=== PATIENT | female | born 1965 | race Hispanic/Latino ===

== ENCOUNTER 2020-07-01 20:44 | Inpatient (IN) | payer OTHER ==
[2020-07-01 21:51] LABS: #Lymphocytes 1.4 thou/uL (1.20-3.40); #Monocytes 0.4 thou/uL (0.11-0.59); #Neutrophils 5.5 thou/uL (1.40-6.50); %Basophils 0.3 % (0.0-1.0); %Eosinophils 0.3 % (0.0-10.0); %Lymphocytes 19.3 % (21.0-51.0); %Monocytes 5.9 % (0.0-10.0); %Neutrophils 74.3 % (42.0-75.0); Hemoglobin 15.5 g/dL (12.0-16.0); Mean Corpuscular HGB CONC 35.5 g/dL (32.0-36.0); Mean Corpuscular Hemoglobin 35.3 pg (27.0-31.0); Mean Corpuscular Volume 99.4 fL (78.0-98.0); Mean Platelet Volume 8.8 fL (7.4-10.4); Platelet Count 271 thou/uL (130-400); RBC Distribution Width 11.3 % (11.5-14.5); Red Blood Cell (RBC) Count 4.41 mill/uL (4.20-5.40); White Blood Cell (WBC) Count 7.4 thou/uL (4.8-10.8)
[2020-07-01 22:10] LABS: ALT (SGPT) 28 U/L (8-55); AST (SGOT) 16 U/L (5-34); Albumin 4.4 g/dL (3.5-5.0); Alkaline Phosphatase 145 U/L (40-110); Anion Gap 23 mmol/L (10-20); BUN (Urea Nitrogen) 14 mg/dL (9.8-20.1); Bilirubin, Total 0.5 mg/dL (0.2-1.2); Calc. Creatinine Clearance 0 mL/min (70-130); Calcium 9.5 mg/dL (7.8-10.44); Carbon Dioxide 18 mmol/L (22-29); Chloride 93 mmol/L (98-107); Globulin 3.1 g/dL (2.4-3.5); Potassium 4.2 mmol/L (3.5-5.1); Protein, Total 7.5 g/dL (6.0-8.3); Sodium 130 mmol/L (136-145)
[2020-07-01 22:17] LABS: Glucose 648 mg/dL (70-105)
[2020-07-01 22:20] LABS: Pregnancy Test - Urine (BHCG) Negative (Negative); Pregu Control Background? CLEAR/WHITE (CLR/WHITE); Pregu Control Bar Appear? YES (CONTROL BAR); Specific Gravity 1.033 (1.002-1.036)
[2020-07-01 22:22] LABS: Bilirubin Negative (Negative); Blood, Urine Negative (Negative); Clarity Clear (Clear); Glucose, Urine (Dipstick) Greater than 1000 mg/dL (Negative); Ketone, Urine 150 mg/dL (Negative); Leukocyte Negative Leu/uL (Negative); Nitrite Negative (Negative); Protein, Urine (Dipstick) Negative (Neg-Trace); Specific Gravity, Urine 1.032 (1.002-1.036); Urobilinogen Normal mg/dL (Less than 2)
[2020-07-01] MEDS ORDERED: Ondansetron PF 4 MG/2 ML Vial ONE (23:42)
[2020-07-01] MEDS ORDERED: Morphine 4 MG/ML VIAL ONE (23:42)
[2020-07-01 23:49] LABS: Analyzer IN Cardio ER; pH (venous) 7.29 (7.32-7.43)
[2020-07-01 23:50] LABS: Actual Bicarbonate (HCO3v) 15 mEq/L (22-28); Hemoglobin (Hb) 0.6 g/dL (11.7-16.0)
[2020-07-01 23:51] LABS: Calcium, Ionized (venous) 1.15 mmol/L (1.16-1.32); Chloride (VBG) 101 mmol/L (98-106)
[2020-07-02] MEDS ORDERED: INSULIN REGULAR IN 0.9 % NACL 100 UNIT/100 ML BAG ONE (00:15)
[2020-07-02] MEDS ORDERED: NS 0.9% w/ 20 MEQ KCL 1,000 ML/1,000 ML BAG IV SCH (01:00)
[2020-07-02 01:57] LABS: Phosphorus 1.7 mg/dL (2.3-4.7)
[2020-07-02 03:06] LABS: SARS-CoV-2 NAA Rapid Test Not Detected (NotDetected)
[2020-07-02] MEDS ORDERED: Electrolyte Replacement Protocol FS PRN (03:15)
[2020-07-02] MEDS ORDERED: D5 1/2 NS w/20 mEq KCL 1,000 ML IV PRN (03:38)
[2020-07-02] MEDS ORDERED: Electrolyte Replacement Protocol 1 EACH IVPB ONE (03:38)
[2020-07-02] MEDS ORDERED: Dextrose 5 %-0.45 % NaCl 1,000 ML IV PRN (03:38)
[2020-07-02] MEDS ORDERED: Sodium Chloride 0.9% 1,000 ML IV PRN ×4 (03:38)
[2020-07-02] MEDS ORDERED: NS 0.9% w/ 20 MEQ KCL 1,000 ML IV PRN ×2 (03:38)
[2020-07-02] MEDS ORDERED: Acetaminophen 325 MG TAB PO PRN (03:40)
[2020-07-02] MEDS ORDERED: Ondansetron PF 4 MG/2 ML Vial IVP PRN (03:40)
[2020-07-02] MEDS: PHOS-NAK 1 PKT PACK PO SCH ×2 (03:40→07:09)
[2020-07-02] MEDS ORDERED: Guaifenesin DM 100-10/5 ML UDCUP PO PRN (03:40)
[2020-07-02] MEDS ORDERED: cloNIDine 0.1 MG TAB PO PRN (03:40)
[2020-07-02] MEDS ORDERED: Morphine 2 MG/ML VIAL SLOW IVP PRN (03:40)
[2020-07-02] MEDS ORDERED: Labetalol HCl 100 MG/20 ML VIAL SLOW IVP PRN (03:40)
[2020-07-02] MEDS ORDERED: hydrALAZINE 20 MG/ML VIAL SLOW IVP PRN (03:40)
[2020-07-02] MEDS ORDERED: Promethazine HCl 12.5 MG in Sodium Chloride 0.9% 50 ML IVPB PRN (03:40)
[2020-07-02] MEDS ORDERED: HUMULIN R 100 UNITS in Sodium Chloride 0.9% 100 ML IVPB SCH (03:45)
[2020-07-02] MEDS ORDERED: Magnesium 2 GM/50 ML 2 GM in Premix Bag 1 BAG IVPB SCH (04:45)
[2020-07-02] MEDS ORDERED: Magnesium 2 GM/50 ML BAG (IN WATER) ONE (04:48)
[2020-07-02 06:10] LABS: Anion Gap 12 mmol/L (10-20); BUN (Urea Nitrogen) 7 mg/dL (9.8-20.1); Calc. Creatinine Clearance 0 mL/min (70-130); Calcium 7.4 mg/dL (7.8-10.44); Carbon Dioxide 23 mmol/L (22-29); Chloride 110 mmol/L (98-107); Glucose 189 mg/dL (70-105); Potassium 3.7 mmol/L (3.5-5.1); Sodium 141 mmol/L (136-145)
[2020-07-02] MEDS ORDERED: Acetaminophen 325 MG TAB ONE (06:12)
[2020-07-02 08:14] LABS: Phosphorus 1.9 mg/dL (2.3-4.7)
[2020-07-02 08:32] LABS: Anion Gap 12 mmol/L (10-20); BUN (Urea Nitrogen) 6 mg/dL (9.8-20.1); Calc. Creatinine Clearance 0 mL/min (70-130); Calcium 7.1 mg/dL (7.8-10.44); Carbon Dioxide 20 mmol/L (22-29); Chloride 110 mmol/L (98-107); Glucose 195 mg/dL (70-105); Potassium 3.8 mmol/L (3.5-5.1); Sodium 138 mmol/L (136-145)
[2020-07-02] MEDS ORDERED: Famotidine 20 MG TAB ONE (11:58)
[2020-07-02 12:06] LABS: Anion Gap 9 mmol/L (10-20); BUN (Urea Nitrogen) 5 mg/dL (9.8-20.1); Calc. Creatinine Clearance 0 mL/min (70-130); Calcium 7.2 mg/dL (7.8-10.44); Carbon Dioxide 23 mmol/L (22-29); Chloride 106 mmol/L (98-107); Glucose 347 mg/dL (70-105); Potassium 3.8 mmol/L (3.5-5.1); Sodium 134 mmol/L (136-145)
[2020-07-02] MEDS: Famotidine 20 MG TAB PO SCH ×2 (12:09→22:12)
[2020-07-02] MEDS: Heparin 5,000 UNITS/ML VIAL SC SCH ×2 (12:09→22:12)
[2020-07-02] MEDS: Polyethylene Glycol 3350 17 GM Packet PO SCH (12:11)
[2020-07-02] MEDS ORDERED: Dextrose 5% in Water 1,000 ML IV PRN (13:01)
[2020-07-02] MEDS ORDERED: Dextrose 50% Abboject 50 ML SYRINGE SLOW IVP PRN (13:01)
[2020-07-02] MEDS ORDERED: HumaLOG 300 UNITS/3 ML VIAL ONE (13:49)
[2020-07-02 13:50] LABS: Hemoglobin A1c Greater than 14.0 % (4.0-6.0)
[2020-07-02 18:20] VITALS: BMI 19.7
[2020-07-02] MEDS ORDERED: Insulin Glargine 15 UNITS in Pre-Filled Syringe 1 EACH SC SCH (21:00)
[2020-07-02] MEDS: HumaLOG 300 UNITS/3 ML VIAL SC PRN (22:11)
[2020-07-03] MEDS: HYDROcodone/Acetaminophen 5/325 mg Tablet PO PRN ×3 (00:40→20:56)
[2020-07-03] MEDS: HumaLOG 300 UNITS/3 ML VIAL SC PRN ×3 (05:31→18:34)
[2020-07-03 05:41] LABS: #Basophils 0.1 thou/uL (0.0-0.2); #Eosinphils 0.1 thou/uL (0.0-0.7); #Lymphocytes 2.3 thou/uL (1.20-3.40); #Monocytes 0.3 thou/uL (0.11-0.59); #Neutrophils 2.1 thou/uL (1.40-6.50); %Basophils 1.1 % (0.0-1.0); %Eosinophils 2.6 % (0.0-10.0); %Lymphocytes 46.4 % (21.0-51.0); %Monocytes 6.9 % (0.0-10.0); %Neutrophils 43.1 % (42.0-75.0); Hemoglobin 13.1 g/dL (12.0-16.0); Mean Corpuscular HGB CONC 34.4 g/dL (32.0-36.0); Mean Corpuscular Hemoglobin 33.9 pg (27.0-31.0); Mean Corpuscular Volume 98.6 fL (78.0-98.0); Mean Platelet Volume 8.5 fL (7.4-10.4); Platelet Count 184 thou/uL (130-400); RBC Distribution Width 11.6 % (11.5-14.5); Red Blood Cell (RBC) Count 3.88 mill/uL (4.20-5.40)
[2020-07-03 06:02] LABS: Anion Gap 10 mmol/L (10-20); BUN (Urea Nitrogen) 4 mg/dL (9.8-20.1); Calc. Creatinine Clearance 101 mL/min (70-130); Calcium 7.7 mg/dL (7.8-10.44); Carbon Dioxide 25 mmol/L (22-29); Chloride 103 mmol/L (98-107); Glucose 241 mg/dL (70-105); Magnesium 1.7 mg/dL (1.6-2.6); Sodium 135 mmol/L (136-145)
[2020-07-03] MEDS ORDERED: Loperamide HCl 2 MG CAP PO PRN (07:20)
[2020-07-03] MEDS ORDERED: Sodium Chloride 0.65% Nasal 44 ML BOT EA NARE PRN (07:20)
[2020-07-03] MEDS ORDERED: GUAIFENESIN SF SOLN 200 MG/10 ML UDCUP PO PRN (07:20)
[2020-07-03] MEDS ORDERED: Ondansetron ODT 4 MG TAB PO PRN (07:20)
[2020-07-03] MEDS ORDERED: HumaLOG 300 UNITS/3 ML VIAL SC PRN (07:20)
[2020-07-03] MEDS ORDERED: Benzonatate 100 MG CAP PO PRN (07:20)
[2020-07-03] MEDS ORDERED: Senokot S 8.6-50 MG TAB PO PRN (07:20)
[2020-07-03] MEDS ORDERED: Calcium Carbonate 500 MG ChewTAB PO PRN (07:20)
[2020-07-03] MEDS ORDERED: Cepastat Lozenges 1 LOZ PO PRN (07:20)
[2020-07-03] MEDS ORDERED: Potassium Chloride 20 MEQ TAB PO SCH (07:30)
[2020-07-03 07:49] LABS: Phosphorus 2.3 mg/dL (2.3-4.7)
[2020-07-03] MEDS: Heparin 5,000 UNITS/ML VIAL SC SCH ×2 (08:21→20:54)
[2020-07-03] MEDS: Famotidine 20 MG TAB PO SCH ×2 (08:21→20:54)
[2020-07-03] MEDS: Polyethylene Glycol 3350 17 GM Packet PO SCH (08:22)
[2020-07-03] MEDS ORDERED: Loratadine 10 MG TAB PO PRN (09:00)
[2020-07-03] MEDS ORDERED: Bisacodyl 10 MG SUPP PR PRN (09:00)
[2020-07-03] MEDS ORDERED: Insulin Glargine 15 UNITS in Pre-Filled Syringe 1 EACH SC SCH ×2 (09:00→21:00)
[2020-07-03] MEDS: Cyclobenzaprine 10 MG TAB PO PRN (11:18)
[2020-07-03] MEDS ORDERED: Zolpidem Tartrate 5 MG TAB PO PRN (21:00)
[2020-07-04] MEDS: Cyclobenzaprine 10 MG TAB PO PRN (05:35)
[2020-07-04] MEDS: HYDROcodone/Acetaminophen 5/325 mg Tablet PO PRN (05:35)
[2020-07-04 07:05] VITALS: BP 114/74; TEMP 97.6
[2020-07-04 07:28] LABS: #Eosinphils 0.1 thou/uL (0.0-0.7); #Lymphocytes 1.7 thou/uL (1.20-3.40); #Monocytes 0.3 thou/uL (0.11-0.59); #Neutrophils 1.4 thou/uL (1.40-6.50); %Basophils 0.6 % (0.0-1.0); %Eosinophils 3.3 % (0.0-10.0); %Lymphocytes 47.4 % (21.0-51.0); %Monocytes 8.2 % (0.0-10.0); %Neutrophils 40.6 % (42.0-75.0); Hemoglobin 14.2 g/dL (12.0-16.0); Mean Corpuscular HGB CONC 34.2 g/dL (32.0-36.0); Mean Corpuscular Hemoglobin 33.6 pg (27.0-31.0); Mean Corpuscular Volume 98.4 fL (78.0-98.0); Mean Platelet Volume 8.7 fL (7.4-10.4); Platelet Count 189 thou/uL (130-400); RBC Distribution Width 11.5 % (11.5-14.5); Red Blood Cell (RBC) Count 4.22 mill/uL (4.20-5.40); White Blood Cell (WBC) Count 3.6 thou/uL (4.8-10.8)
[2020-07-04 07:57] LABS: Anion Gap 11 mmol/L (10-20); BUN (Urea Nitrogen) 7 mg/dL (9.8-20.1); Calc. Creatinine Clearance 90 mL/min (70-130); Calcium 8.9 mg/dL (7.8-10.44); Carbon Dioxide 28 mmol/L (22-29); Cardiac Risk 3.5 (Less than 4.5); Chloride 101 mmol/L (98-107); Cholesterol 157 mg/dl (< 200 Desired); Glucose 175 mg/dL (70-105); HDL Cholesterol 45 mg/dL (>60 Neg Risk); LDL Cholesterol, Calculated 87 mg/dL; Potassium 3.5 mmol/L (3.5-5.1); Sodium 136 mmol/L (136-145); Triglycerides 124 mg/dL (Less than 150)
[2020-07-04] MEDS ORDERED: Insulin Glargine 20 UNITS in Pre-Filled Syringe 1 EACH SC SCH ×2 (09:00→21:00)
[2020-07-04] MEDS: Heparin 5,000 UNITS/ML VIAL SC SCH (09:50)
[2020-07-04] MEDS: Famotidine 20 MG TAB PO SCH (09:50)
[2020-07-04] MEDS: Polyethylene Glycol 3350 17 GM Packet PO SCH (09:51)
== END 2020-07-04 11:14 | disposition home or self-care (01) | DRG 638 ==
LOC: ERS 20:44 → ERHOLD 07-02 00:43 → T4-A 07-02 18:13
PROVIDERS: ADMIT Internal Medicine; ATTEND Internal Medicine
DX: E10.10 Type 1 diabetes mellitus with ketoacidosis without coma (principal); E87.1 Hypo-osmolality and hyponatremia; Z20.822 Contact with and (suspected) exposure to COVID-19; M54.2 Cervicalgia; G89.29 Other chronic pain; M54.5 Low back pain; M54.30 Sciatica, unspecified side; E83.39 Other disorders of phosphorus metabolism; E83.42 Hypomagnesemia; E87.6 Hypokalemia; Z88.6 Allergy status to analgesic agent
CPT/HCPCS: 0240U; 36415; 36416; 72040; 80048; 80053; 80061; 81003; 81025; 82010; 82805; 83036; 83735; 83930; 84100; 84443; 85025; 93005; 96365; 96375; J1644; J1815; J2270; J2405; J3475; J3480

== ENCOUNTER 2021-02-10 15:18 | Outpatient (CLI) | payer OTHER | END 2021-02-10 15:19 | disposition home or self-care (01) | LOC: BICMAMMO 15:18 | PROVIDERS: ATTEND Family Medicine | DX: Z12.31 Encounter for screening mammogram for malignant neoplasm of breast (principal); Z80.3 Family history of malignant neoplasm of breast | CPT/HCPCS: 77063; 77067 ==